=== PATIENT | male | born 1990 | race African-American/Black ===

== ENCOUNTER 2019-03-11 08:57 | Emergency (ER) | payer SELFPAY ==
[~2019-03-11] VITALS: Ht 167.6 cm; Wt 72.6 kg
[2019-03-11 09:01] VITALS: BP 121/72
--- NOTE | 2019-03-11 09:44 | RAD ---
2 view study of the left tibia and fibula Clinical indications: Left lower leg pain above the ankle area. No known injury. FINDINGS: The left knee and proximal tibia and fibula are not completely visualized in the lateral view. No acute fracture or dislocation or lytic process is evident. The mortise ankle joint is intact. No periosteal reaction is seen. There is a small calcified varicosity of the medial subcutaneous soft tissues at the midshaft level. IMPRESSION: No acute osseous abnormality. Varicosity. Electronically signed by: Clif Davis MD (03/11/2019 9:41 AM) [facility]
--- NOTE | 2019-03-11 09:48 | PHYS DOC ---
Past Medical History Past Medical History: No Pertinent History (GIANA CURRY APRN) Past Surgical History: No Surgical History (GIANA CURRY APRN) Alcohol Use: Rarely Drug Use: Marijuana (GIANA CURRY APRN) Adult General Chief Complaint Chief Complaint: LOWER EXT PAIN HPI HPI Patient is a 28 year old male with no medical history who presents today complaining of 7 out of 10 left evans pain described as sharp and intermittent worse on walking for the last 5 days. Patient denies any known injury. Patient states he has not tried anything to help relieve his symptoms. Denies any pain to the calf region. Denies any long distance air or car travel. Denies being on any hormones, denies any chest pain or shortness of breath denies any personal or family history of DVTs or PEs. (GIANA CURRY APRN) Review of Systems Review of Systems Constitutional: Denies fever or chills [] Musculoskeletal: Reports left evans pain Integument: Denies rash or skin lesions [] Neurologic: Denies headache, focal weakness or sensory changes [] All other systems were reviewed and found to be within normal limits, except as documented in this note. (GIANA CURRY APRN) Allergies Allergies Allergies Coded Allergies Type Severity Reaction Last Updated Verified No Known Drug Allergies 03/11/19 No (ARLET MORALES DO) Physical Exam Physical Exam Constitutional: Well developed, well nourished, no acute distress, non-toxic appearance. [] Skin: Warm, dry, no erythema, no rash. [] Back: No tenderness, no CVA tenderness. [] Extremities: Left lower extremity with no obvious deformity, no edema, no ecchymosis, no tenderness, negative Homans sign. Full range of motion to the left lower extremity. +2 left pedal pulse. Cap refill less than 2 seconds the left lower extremity. Sensation intact to the left lower extremity. Neurologic: Alert and oriented X 3, normal motor function, normal sensory function, no focal deficits noted. [] Psychologic: Affect normal, judgement normal, mood normal. [] (GIANA CURRY APRN) Current Patient Data Vital Signs Vital Signs Date Time Temp Pulse Resp B/P (MAP) Pulse Ox O2 Delivery O2 Flow Rate FiO2 03/11/19 09:01 98.5 75 16 121/72 (88) 98 Room Air 98.5 (ARLET MORALES DO) EKG EKG [] (GIANA CURRY APRN) Radiology/Procedures Radiology/Procedures []PROCEDURE: TIBIA FIBULA LEFT 2 view study of the left tibia and fibula Clinical indications: Left lower leg pain above the ankle area. No known injury. FINDINGS: The left knee and proximal tibia and fibula are not completely visualized in the lateral view. No acute fracture or dislocation or lytic process is evident. The mortise ankle joint is intact. No periosteal reaction is seen. There is a small calcified varicosity of the medial subcutaneous soft tissues at the midshaft level. IMPRESSION: No acute osseous abnormality. Varicosity. Electronically signed by: Jeison Davis MD (03/11/2019 9:41 AM) [facility] DICTATED and SIGNED BY: JEISON DAVIS MD DATE: 03/11/19 0941 (GIANA CURRY APRN) Radiology/Procedures PROCEDURE: VENOUS LOWER EXTREMITY LEFT EXAM: Left lower extremity venous Doppler sonogram. HISTORY: Pain. TECHNIQUE: Downs scale and color Doppler sonographic evaluation of the left lower extremity veins with spectral waveform analysis was performed. FINDINGS: There is normal color flow, normal compressibility and there are normal spectral waveforms in the common femoral, superficial femoral, popliteal, posterior tibial and greater saphenous veins. There is a prominent left inguinal lymph node with fatty hilum measuring 2.7 cm. This is likely reactive or physiologic. IMPRESSION: No Doppler evidence of lower extremity deep venous thrombosis. Electronically signed by: Cassia Liu MD (03/11/2019 10:17 AM) [facility] (ARLET MORALES DO) Course & Med Decision Making Course & Med Decision Making Pertinent Labs and Imaging studies reviewed. (See chart for details) This is a 28 year old male who presents to the ED today with left evans pain for 5 days, no known injury. Left tib-fib x-rays are negative for any acute findings. Preliminary read of the left lower extremity venous Doppler was negative for any acute findings. Considering patient's patient's pain and its occurrence when he is walking there is a likelihood he has evans splints. Anshu bandage provided. Ice elevation encouraged, naproxen prescription given. Provided orthopedic doctor for follow-up as an outpatient. (GIANA CURRY APRN) Dragon Disclaimer Dragon Disclaimer This electronic medical record was generated, in whole or in part, using a voice recognition dictation system. (GIANA CURRY APRN) Departure Departure Impression: Primary Impression: Evans splint of left lower extremity Disposition: HOME, SELF-CARE Condition: STABLE Referrals: GEOVANNY SANCHEZ MD (PCP) LENNY HAMM II, MD follow up in 1 week with your doctor Patient Instructions: Evans Splints, [id number] Additional Instructions: You were evaluated in the emergency room for evans pain, your x-rays of the left lower extremity as well as a venous Doppler were negative for any acute findings. There is a likelihood you have what we call evans splints. Try and applied the Anshu bandage provided to the left lower extremity as tolerated. Try to ice and elevate the extremity. Take the prescribed medications as needed for pain. 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 I was available for consultation as needed during the patient's visit in the emergency department. I agree with the clinical impression, plan, and disposition. (ARLET MORALES DO) Problem Qualifiers Primary Impression: Evans splint of left lower extremity Encounter type: initial encounter Qualified Codes: S86.892A - Other injury of other muscle(s) and tendon(s) at lower leg level, left leg, initial encounter GIANA CURRY APRN Mar 11, 2019 09:47 ARLET MORALES DO Mar 12, 2019 11:36
[2019-03-11] MEDS ORDERED: NAPR-514 PO (10:01)
--- NOTE | 2019-03-11 10:20 | RAD ---
EXAM: Left lower extremity venous Doppler sonogram. HISTORY: Pain. TECHNIQUE: Downs scale and color Doppler sonographic evaluation of the left lower extremity veins with spectral waveform analysis was performed. FINDINGS: There is normal color flow, normal compressibility and there are normal spectral waveforms in the common femoral, superficial femoral, popliteal, posterior tibial and greater saphenous veins. There is a prominent left inguinal lymph node with fatty hilum measuring 2.7 cm. This is likely reactive or physiologic. IMPRESSION: No Doppler evidence of lower extremity deep venous thrombosis. Electronically signed by: Cassia Liu MD (03/11/2019 10:17 AM) [place] [id number]
== END 2019-03-11 10:23 | disposition home or self-care (01) ==
LOC: ER 08:57
DX: S86.892A Other injury of other muscle(s) and tendon(s) at lower leg level, left leg, initial encounter (principal); X58.XXXA Exposure to other specified factors, initial encounter; Y93.89 Activity, other specified; Y92.89 Other specified places as the place of occurrence of the external cause; Y99.8 Other external cause status
CPT/HCPCS: 73590; 93971; 99284-25

== ENCOUNTER 2020-09-17 13:55 | Emergency (ER) | payer SELFPAY ==
[~2020-09-17] VITALS: Ht 167.6 cm; Wt 77.2 kg
[~2020-09-17 13:55] MED LIST: NAPR-514 PO
[2020-09-17 14:07] VITALS: BP 140/94
[2020-09-17] MEDS ORDERED: SULF1TAB24 PO (14:21)
--- NOTE | 2020-09-17 14:21 | PHYS DOC ---
Past Medical History Past Medical History: No Pertinent History Past Surgical History: No Surgical History Smoking Status: Never Smoker Alcohol Use: Rarely Drug Use: Marijuana General Adult EDM: Chief Complaint: FINGER INJURY HPI: HPI: Patient is a 30 year old male patient who presents to the ED today with left index finger mild intermittent pain, redness, swelling, symptoms began 3 days ago. 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 He states something could have cut him. He is right-handed. Review of Systems: Review of Systems: Constitutional: Denies fever or chills. [] Musculoskeletal: Denies back pain or joint pain. [] Integument: Left index finger with no obvious deformity. Small soft tissue swelling noted on the distal end of the left index finger. There is redness over the left index finger distal and dorsal aspect. There is no fluctuance to the left index finger. Full range of motion to the left index finger including flexion and extension at the MIP, PIP and PIP joints. Adequate radial sensation to the left index finger. +2 left radial pulse. Cap refill less than 2 seconds to left index finger Neurologic: Denies headache, focal weakness or sensory changes. [] Psychiatric: Denies depression or anxiety. [] Heart Score: Risk Factors: Risk Factors: DM, Current or recent (<one month) smoker, HTN, HLP, family history of CAD, obesity. Risk Scores: Score 0 - 3: 2.5% MACE over next 6 weeks - Discharge Home Score 4 - 6: 20.3% MACE over next 6 weeks - Admit for Clinical Observation Score 7 - 10: 72.7% MACE over next 6 weeks - Early Invasive Strategies Allergies: Allergies: Allergies Coded Allergies Type Severity Reaction Last Updated Verified No Known Drug Allergies 03/11/19 No Physical Exam: PE: Constitutional: Well developed, well nourished, no acute distress, non-toxic appearance. [] HENT: Normocephalic, atraumatic, bilateral external ears normal, oropharynx moist, no oral exudates, nose normal. [] Eyes: PERRLA, EOMI, conjunctiva normal, no discharge. [] Neck: Normal range of motion, no tenderness, supple, no stridor. [] Cardiovascular:Heart rate regular rhythm, no murmur [] Lungs & Thorax: Bilateral breath sounds clear to auscultation [] Abdomen: Bowel sounds normal, soft, no tenderness, no masses, no pulsatile masses. [] Skin: Warm, dry, no erythema, no rash. [] Back: No tenderness, no CVA tenderness. [] Extremities: No tenderness, no cyanosis, no clubbing, ROM intact, no edema. [] Neurologic: Alert and oriented X 3, normal motor function, normal sensory function, no focal deficits noted. [] Psychologic: Affect normal, judgement normal, mood normal. [] Current Patient Data: Vital Signs: Vital Signs Date Time Temp Pulse Resp B/P (MAP) Pulse Ox O2 Delivery O2 Flow Rate FiO2 09/17/20 14:07 98.1 91 18 140/94 (109) 99 Room Air 98.1 EKG: EKG: [] Radiology/Procedures: Radiology/Procedures: [] Course & Med Decision Making: Course & Med Decision Making Pertinent Labs and Imaging studies reviewed. (See chart for details) This is a 30-year-old male patient presenting to the ED today with left index finger redness and swelling, no known injury, he works in a [employer]. Finger appears to have cellulitis. Tetanus was updated. Discharged on Bactrim. Provided education on wound care. Dragon Disclaimer: [employer] Disclaimer: This electronic medical record was generated, in whole or in part, using a voice recognition dictation system. Departure Departure Impression: Primary Impression: Cellulitis of left index finger Disposition: 01 DC HOME SELF CARE/HOMELESS Condition: STABLE Referrals: NO PCP (PCP) Follow-up in 1 to 2 weeks with your doctor Patient Instructions: Cellulitis, [id number] Additional Instructions: You were evaluated in the emergency room for left index finger infection. Take the prescribed antibiotics until completed. Soak your finger in warm water and Epson salt twice a day. Come back to the ED at any point symptoms worsen Scripts Sulfamethoxazole/Trimethoprim (BACTRIM DS TABLET) 1 Each Tablet 1 TAB PO BID for 10 Days, #20 TAB 0 Refills Prov: ASHLYNJimiGIANA APRN 09/17/20 SAVFLORENCIOGIANA OTF Sep 17, 2020 14:21
[2020-09-17] MEDS ORDERED: DIPH,PERTUSS(ACELL),TET VAC/PF 0.5 ML SYRINGE. VAX IM ONE (14:30)
== END 2020-09-17 14:36 | disposition home or self-care (01) ==
LOC: ER 13:55
DX: L03.012 Cellulitis of left finger (principal)
CPT/HCPCS: 90471; 90715; 99283

== ENCOUNTER 2020-11-29 07:36 | Emergency (ER) | payer BC ==
[~2020-11-29] VITALS: Ht 170.2 cm; Wt 79.7 kg
[~2020-11-29 07:36] MED LIST changes: +SULF1TAB24 PO
[2020-11-29 09:23] VITALS: BP 131/75
--- NOTE | 2020-11-29 10:00 | RAD ---
EXAM: Left hand, 3 views. HISTORY: Pain. Fall. COMPARISON: None. FINDINGS: 3 views of the left hand are obtained. There is no fracture, dislocation or subluxation. Th ere is no foreign body. IMPRESSION: No acute osseous finding. Electronically signed by: Cassia Liu MD (11/29/2020 9:58 AM) [id number]
--- NOTE | 2020-11-29 10:16 | ED.ADGEN ---
Past Medical History Past Medical History: No Pertinent History Past Surgical History: Other Additional Past Surgical Histo: L HAND I&D Smoking Status: Former Smoker Alcohol Use: Occasionally Drug Use: Marijuana General Adult EDM: Chief Complaint: THUMB HPI: HPI: Patient is a 30 year old AA male who presents to the emergency department with complaints of left proximal thumb pain after he slipped and fell on the ice yesterday. Patient states he had I&D of his left index finger a few months ago by Dr. Haskins but he denies any redness or swelling after that procedure. Patient states he continues to have some pain in his left index finger but that did not increase after the fall. He states that the pain in the left index finger has been persistent since the surgery. He currently complains of proximal left thumb pain he denies any decreased range of motion numbness or tingling of the affected digit. He currently rates the pain a 2 out of 10 on the pain scale, he denies any alleviating factors, the pain is worse with movement. Review of Systems: Review of Systems: Complete ROS is negative unless otherwise noted in HPI. Allergies: Allergies: Allergies Coded Allergies Type Severity Reaction Last Updated Verified No Known Drug Allergies 10/13/20 No Physical Exam: PE: See Above Constitutional: Well developed, well nourished, no acute distress, non-toxic appearance. [] HENT: Normocephalic, atraumatic, bilateral external ears normal, nose normal. [] Eyes: PERRLA, EOMI, conjunctiva normal, no discharge. [] Neck: Normal range of motion, no stridor. [] Cardiovascular:Heart rate regular rhythm Lungs & Thorax: Respirations even and unlabored, no retractions, no respiratory distress Skin: Warm, dry, no erythema, no rash. [] Extremities: Left hand: Proximal tenderness to palpation of the left thumb without obvious deformity or crepitus, no bruising, no cyanosis, ROM intact, no edema. [] Neurologic: Alert and oriented X 3, no focal deficits noted. [] Psychologic: Affect normal, judgement normal, mood normal. [] Current Patient Data: Vital Signs: Vital Signs Date Time Temp Pulse Resp B/P (MAP) Pulse Ox O2 Delivery O2 Flow Rate FiO2 11/29/20 09:23 98.0 78 18 131/75 (93) 98 Room Air 98.0 EKG: EKG: [] Heart Score: Risk Factors: Risk Factors: DM, Current or recent (<one month) smoker, HTN, HLP, family history of CAD, obesity. Risk Scores: Score 0 - 3: 2.5% MACE over next 6 weeks - Discharge Home Score 4 - 6: 20.3% MACE over next 6 weeks - Admit for Clinical Observation Score 7 - 10: 72.7% MACE over next 6 weeks - Early Invasive Strategies Radiology/Procedures: Radiology/Procedures: [] Course & Med Decision Making: Course & Med Decision Making Pertinent Labs and Imaging studies reviewed. (See chart for details) [] Dragon Disclaimer: Dragon Disclaimer: This electronic medical record was generated, in whole or in part, using a voice recognition dictation system. Departure Departure Impression: Primary Impression: Pain of left thumb Disposition: 01 DC HOME SELF CARE/HOMELESS Condition: STABLE Referrals: HUBERT LEWIS MD Patient Instructions: Thumb Sprain Additional Instructions: Take Tylenol or ibuprofen as needed for pain. Recommend application of ice, elevation, and rest of affected extremity. Wear the splint that was placed until follow up appointment with Dr. Lewis, follow up this week. Return to the ER if your symptoms worsen. Scripts No Active Prescriptions or Reported Meds Splinting Splinting : Location: L thumb Pre-Made Type: metal (aluminum finger splint) Pre-Proc Neuro Vasc Exam: normal Post-Proc Neuro Vasc Exam: normal, unchanged from pre-exam ISIDRO SEPULVEDA APRN Nov 29, 2020 10:16
== END 2020-11-29 10:28 | disposition home or self-care (01) ==
LOC: ER 07:36
DX: M79.645 Pain in left finger(s) (principal); G89.11 Acute pain due to trauma; Z87.891 Personal history of nicotine dependence; W00.0XXA Fall on same level due to ice and snow, initial encounter; Y93.89 Activity, other specified; Y92.89 Other specified places as the place of occurrence of the external cause; Y99.8 Other external cause status
CPT/HCPCS: 29130; 73130; 99284